=== PATIENT | female | born 1990 ===

== ENCOUNTER 2016-12-01 13:14 | Emergency (ER) | payer SELFPAY ==
[2016-12-01 15:01] VITALS: BMI 28.9
[2016-12-01 15:19] LABS: SQUAMOUS EPITHIAL 4 /hpf (0-5); URINE BACTERIA MANY (<OCC); URINE BILIRUBIN NEGATIVE (NEGATIVE); URINE BLOOD NEGATIVE (NEGATIVE); URINE CLARITY CLOUDY (Clear); URINE COLOR AMBER (YELLOW); URINE GLUCOSE (UA) NEG (Normal); URINE LEUKOCYTE ESTERASE TRACE Leu/uL (Negative); URINE NITRATE POSITIVE (NEGATIVE); URINE PROTEIN NEGATIVE (NEGATIVE); URINE UROBILINOGEN 0.2-1.0 mg/dL (0.2-1.0)
[2016-12-02] MEDS ORDERED: Lactated Ringer's 1,000 ML IV SCH (10:30)
== END 2016-12-01 16:10 | disposition home or self-care (01) ==
LOC: H.EROB2 13:14 → H.EROB 13:38 → H.EROB2 16:10
DX: O47.1 False labor at or after 37 completed weeks of gestation (principal); Z3A.37 37 weeks gestation of pregnancy

== ENCOUNTER 2016-12-21 16:48 | Inpatient (IN) | payer MEDICAID, SELFPAY ==
[2016-12-21 17:27] VITALS: BMI 30.2
[2016-12-21] MEDS ORDERED: Lactated Ringer's 1,000 ML IV SCH (17:30)
[2016-12-21 17:38] VITALS: BP 118/85; PULSE 87; RESP 18; TEMP 97.5; O2SAT 100
[2016-12-21 17:59] LABS: BASO % 0.4 % (0.0-2.0); EOS % 0.2 % (0.0-4.0); HEMOGLOBIN 11.5 g/dL (12.0-16.0); LYMPH # 1.4 K/uL (1.0-4.3); LYMPH % 14.1 % (20.0-40.0); MEAN CELL VOLUME 75.7 fl (81.0-99.0); MEAN CORPUSCULAR HEMOGLOBIN 23.7 pg (27.0-31.0); MEAN CORPUSCULAR HGB CONC 31.3 g/dL (33.0-37.0); MEAN PLATELET VOLUME 10.6 fl (7.2-11.7); MONO # 0.9 K/uL (0.0-0.8); MONO % 9.4 % (0.0-10.0); NEUT # 7.3 K/uL (1.8-7.0); NEUT % 75.9 % (50.0-75.0); RBC 4.85 Mil/uL (3.80-5.20); RED CELL DISTRIBUTION WIDTH 15.6 % (11.5-14.5); WHITE BLOOD COUNT 9.7 K/uL (4.8-10.8)
--- NOTE | 2016-12-22 00:19 | OBHP ---
Datetime: 12/21/2016 17:35 IP Adm Impression: Term, intrauterine IP Admit Plan: Admit to unit; Initiate labor induction protocol Admit Comment, IP Provider: This is a 26 y/o with 40.2 weeks GA with a MARICHUY 12/19/16 by LMP and confirmed by 8th week US, presenting for IOL. Pt presented variable decelerations while on NST this morning and sent for IOL. +FM. Pt denies N/V, CP, SOB, vaginal bleeding, CTX or loss of fluid. NKDA Meds: PNV. PMHx: denied. PSHx: lipoma extraction 4 years ago. SHx: No smoking, occasional alcohol and recreational drugs. A_P: IUP at 40.2 weeks GA will be admitted. IOL protocol will be started. Catrachito Hawkins - PGY 1. OBH Addendum: pt seen _ examined by me. Agree with above with following clarification. Pt presented to m offic e for nst and was noted to have a variable decel and late. Dr. mora advised admission for deliver y. Extremities - PN: Normal Back - PN: Normal Lungs - PN: Normal Heart - PN: Normal Thyroid - PN: Normal Neurologic - PN: Normal HEENT - PN: Normal General - PN: Normal FHR - Baseline A Provider: 150 Gestation - Est Wks by US: 40.2 IP Hx Assessment: The History has been Reviewed and is Current EGA AdmitDate IP: 40.2 Vital Signs Provider: Reviewed; Within Normal Limits IP Chief Complaint: Other NICHD Variability Prov Fetus A: Moderate 6-25bpm NICHD Accel Fetus A IP Provider: 15X15 FHR Category Provider Fetus A: Category I Dilatation, Provider: 0 Effacement, Provider: 60 Station, Provider: -3 (Annotations: Data stored by CPN on behalf of user)
--- NOTE | 2016-12-22 00:23 | OBHP ---
Datetime: 12/21/2016 18:40 Admit Comment, IP Provider: his is a 26 y/o with 40.2 weeks GA with a MARICHUY 12/19/16 by LMP and confirmed by 8th week US, presenting for IOL. Pt presented variable decelerations while on NST this m orning and sent for IOL. +FM. Pt denies N/V, CP, SOB, vaginal bleeding, CTX or loss of fluid. NKDA Meds: PNV. PMHx: denied. PSHx: lipoma extraction 4 years ago. SHx: No smoking, occasional alcohol and recreational drugs. A_P: IUP at 40.2 weeks GA will be admitted. IOL protocol will be started. Catrachito Hawkins - PGY 1. OBH Addendum: pt seen _ examined by me. Agree with above with following clarification. Pt presented to m offic e for nst and was noted to have a variable decel and late. Dr. mora advised admission for deliver y. Datetime: 12/21/2016 17:35 Pelvic Type - PN: Adequate Abdomen - PN: Normal Presentation-Admit: Vertex EGA AdmitDate IP: 40.2 Genitourinary Exam: Normal
[2016-12-22] MEDS: Lactated Ringer's 1,000 ML IV SCH ×3 (05:25→18:13)
[2016-12-22] MEDS ORDERED: ceFAZolin 1 GM in Sodium Chloride 0.9% 100 ML IVPB ONE (06:49)
[2016-12-22] MEDS ORDERED: Morphine 5 mg/10 ml preservative-free Inj(Duramorph) ONE (07:05)
--- NOTE | 2016-12-22 07:07 | OBPN ---
Datetime: 12/22/2016 07:02 IP Progress Note Comment: Cervidel removed @ 3:15 am secondary to intolerance to ctxs. Followi ng removal of cervidel ctxs decreased in intensity and have now increased to 10/10 with recurrent vanessa iable decels and late decels. Indications for primary cd d/w pt. She agreed with procedure. Informed consent obtained for primary cd and blood transfusion. Datetime: 12/21/2016 17:35 FHR - Baseline A Provider: 150 Gestation - Est Wks by US: 40.2 Presentation-Admit: Vertex Vital Signs Provider: Reviewed; Within Normal Limits NICHD Accel Fetus A IP Provider: 15X15 FHR Category Provider Fetus A: Category I NICHD Variability Prov Fetus A: Moderate 6-25bpm Dilatation, Provider: 0 Effacement, Provider: 60 Station, Provider: -3 (Annotations: Data stored by CPN on behalf of user)
[2016-12-22] MEDS ORDERED: Oxytocin 30 units/LR 500ML 30 U/500 ML BAG IV ONE ×2 (07:10→07:59)
[2016-12-22] MEDS ORDERED: DiphenhydrAMINE 50 mg/ml Inj IVP PRN (09:10)
[2016-12-22] MEDS ORDERED: Naloxone 0.4 mg/ml Inj (Adult) IVP PRN (09:10)
--- NOTE | 2016-12-22 09:21 | OBDS ---
DELIVERY PERSONNEL Delivery Doctor: Nadia Wood MD Truck Rental Manager: Kelsie Charles RN Anesthesiologist: Dr. Jasso MATERNAL INFORMATION Delivery Anesthesia: Spinal Provider Comments: preop dx: intolerance to labor; 40.3wks postop dx: same; thick mecon; direct op anesth: dr novoa spinal anesth see dictationf for complete report LABOR SUMMARY EDC: 12/19/2016 00:00 No. Babies in Womb: 1 Attempted: No LABOR INFORMATION Reason for Induction: Other Cervical Ripening Agents: Cervidil Oxytocin: N/A Group B Beta Strep: Done, Result Unknown Steroids Given: None Reason Steroids Not Administered: Not Applicable MEMBRANES Membranes Rupture Method: Artificial Rupture of Membranes: 12/22/2016 07:57 Length of Rupture (hrs): 0.02 Amniotic Fluid Color: Heavy Meconium Amniotic Fluid Amount: Moderate STAGES OF LABOR Stage 3 hrs: 0 Stage 3 min: 1 CSECTION DELIVERY Primary Indication: Other Other Primary Indication: intolerance to labor CSection Urgency: Elective CSection Incidence: Primary Labor: Labor Elective: Elective CSection Incision: Lower Uterine Transverse BABY A INFORMATION Infant Delivery Date/Time: 12/22/2016 07:58 Method of Delivery: Born in Route : No : N/A Forceps: N/A Vacuum Extraction: N/A Shoulder Dystocia : No SHOULDER DYSTOCIA BABY A Delivery Date/Time: 12/22/2016 07:58 PRESENTATION/POSITION BABY A Presentation: Cephalic Cephalic Presentation: Vertex Breech Presentation: N/A PLACENTA INFORMATION BABY A Placenta Delivery Time : 12/22/2016 07:59 Placenta Method of Delivery: Spontaneous Placenta Status: Delivered SCORES BABY A Heart Rate 1 min: >100 bpm Resp Effort 1 min: Good Cry Reflex Irritability 1 min: Cough or Sneeze or Pulls Away Muscle Tone 1 min: Active Motion Color 1 min: Body Alex, Extremities Blue Resuscitation Effort 1 min: Tactile Stimulation SCORE 1 MIN: 9 Heart Rate 5 min: >100 bpm Resp Effort 5 min: Good Cry Reflex Irritability 5 min: Cough or Sneeze or Pulls Away Muscle Tone 5 min: Active Motion Color 5 min: Body Alex, Extremities Blue Resuscitation Effort 5 min: Tactile Stimulation SCORE 5 MIN: 9 INFANT INFORMATION BABY A Gestational Age at Delivery: 40.0 Gestational Status: Term Infant Outcome : Liveborn Condition : Stable Sex: Male IDENTIFICATION/MEDS BABY A ID Band Number: [id number] ID Band Location: Left Leg; Left Arm WEIGHT/LENGTH BABY A Birthweight (gms): 3270 Weight (lb): 7 Weight (oz): 3 CORD INFORMATION BABY A No. Cord Vessels: 3 Nuchal Cord : N/A Infant Cord pH Baby Venous: n/a Cord Blood Taken: No Suction: None ASSESSMENT BABY A Infant Complications: Meconium Physical Findings at Delivery: Within Normal Limits Infant Respirations: Appears Normal Floor Worker/ALS Called : No Care By: Hina Gomez Transferred To: [facility]
[2016-12-23] MEDS: Lactated Ringer's 1,000 ML IV SCH ×2 (02:07→02:09)
[2016-12-23] MEDS: Oxycodone/Acetaminophen 5/325 mg Tab PO PRN ×3 (05:43→21:34)
[2016-12-23 08:02] LABS: BASO % 0.2 % (0.0-2.0); EOS % 0.1 % (0.0-4.0); HEMOGLOBIN 9.9 g/dL (12.0-16.0); LYMPH # 1.4 K/uL (1.0-4.3); LYMPH % 12.1 % (20.0-40.0); MEAN CELL VOLUME 75.5 fl (81.0-99.0); MEAN CORPUSCULAR HEMOGLOBIN 23.6 pg (27.0-31.0); MEAN CORPUSCULAR HGB CONC 31.3 g/dL (33.0-37.0); MEAN PLATELET VOLUME 9.9 fl (7.2-11.7); MONO # 0.7 K/uL (0.0-0.8); MONO % 6.4 % (0.0-10.0); NEUT # 9.2 K/uL (1.8-7.0); NEUT % 81.2 % (50.0-75.0); RBC 4.19 Mil/uL (3.80-5.20); RED CELL DISTRIBUTION WIDTH 15.4 % (11.5-14.5); WHITE BLOOD COUNT 11.3 K/uL (4.8-10.8)
[2016-12-24] MEDS: Oxycodone/Acetaminophen 5/325 mg Tab PO PRN ×2 (02:17→08:16)
[2016-12-24] MEDS ORDERED: Simethicone 80 mg Chewtab PO PRN (08:06)
--- NOTE | 2016-12-24 09:08 | OBPPN ---
Datetime: 12/24/2016 08:07 PP Pain Prov: Within normal limits PP Nausea Prov: Denies PP Flatus Prov: Yes PP BM Prov: No PP Breasts Prov: Normal PP Heart Prov: Normal PP Lungs Prov: Normal PP Abdomen/Uterus Prov: Normal PP Lochia Prov: Normal PP Vulva/Perineum Prov: Normal PP CVA Tenderness Prov: Normal PP Extremities Prov: Normal PP C/S Incision Prov: Normal PP Progress Prov: Normal PP Comments Phys Exam Prov: General: A_O, resting comfortably in bed, NAD HEENT: white sclera, pink conjunctiva, oral mucosa moist. Lungs: CTA B/L, no wheezing, rhonchi or rales CVS: RRR, S1, S2 NL ABD: +BS. Uterus below umbilicus Incision: clean, dry and intact. no induration, erythema or fluctuation. no dehiscence EXT: no edema, negative Kanwal's sign, calves nontender Neuro/psych: AAOX3 PP Impression Prov: Normal progression PP Plan Prov: Continue present management PP Progress Note Prov: S: patient seen on POD2 in not acute distress. Baby is breast and bottle feeding. Denies CP, palpitations, SOB, calf pain, nausea or vomiting. Patient is tolerating PO reg d iet. Lochia is less than menses. Pain controlled with percocet and motrin pRN. +flatus. No BM yet. Am bulating without difficulties. O: See above A_P: s/p C-Sect POD2 -C/w current plan -Motrin and percocet PRn for pain -Encourage ambulation and breasfeeding -Anticipated DC 12/25/16 Pablo Krishna PGY2 Vital Signs Provider PP: Reviewed; Within Normal Limits
--- NOTE | 2016-12-24 09:17 | OBPPN ---
Datetime: 12/24/2016 08:07 PP Progress Note Prov: S: patient seen on POD2 in not acute distress. Baby is breast and bottle feeding. Denies CP, palpitations, SOB, calf pain, nausea or vomiting. Patient is tolerating PO reg d iet. Lochia is less than menses. Pain controlled with percocet and motrin pRN. +flatus. No BM yet. Am bulating without difficulties. O: See above A_P: s/p C-Sect POD2 -C/w current plan -Motrin and percocet PRn for pain -Encourage ambulation and breasfeeding -Anticipated DC 12/25/16 Pablo Krishna PGY2 Addendum by Dr. Lim: Patient evaluated independently and I agree with the above. Patient is POD# 2, stable, continue current post operative orders
[2016-12-24] MEDS: Simethicone 80 mg Chewtab PO SCH ×3 (09:40→16:16)
[2016-12-25] MEDS: Oxycodone/Acetaminophen 5/325 mg Tab PO PRN ×2 (01:58→06:18)
--- NOTE | 2016-12-25 10:05 | OBPPN ---
Datetime: 12/25/2016 07:38 PP Nausea Prov: Denies PP Flatus Prov: Yes PP BM Prov: No PP Breasts Prov: Normal PP Heart Prov: Normal PP Lungs Prov: Normal PP Abdomen/Uterus Prov: Normal PP Vulva/Perineum Prov: Normal PP CVA Tenderness Prov: Normal PP Extremities Prov: Normal PP C/S Incision Prov: Normal PP Impression Prov: Normal progression PP Plan Prov: Continue present management PP Progress Note Prov: 26 y/o now seen and examined at bedside. Abmulating well w/o dizziness. Pt reports pain is controlled with pain medications. Baby is breast and bottle feeding. Pt reports p assing gas per rectum and no BM yet. Denies chest pain, dyspnea, nausea, vomiting, fever, chills or calf pain. Physical Exam: General: A_O, resting comfortably in bed, NAD HEENT: white sclera, pink conjunctiva, oral mucosa moist. Lungs: CTA B/L, no wheezing, rhonchi or rales CVS: RRR, S1, S2 NL ABD: ND, +BS; Incision: clean, dry and intact. no induration, erythema or fluctuation. intact moreno, no dehisc ence EXT: no edema, negative Kanwal's sign, calves nontender Neuro/psych: AAOX3, no grossly focal deficit, preserved affect and mood. assessement: 26 yo s/p , POD#3 asymptomatic anemia Plan: Discharge home today Percocet and Ibuprofen for pain management ferrous sulfate 325 PO bid every other day for 2 months Encourage and ambulatory Follow up in [facility] in 1 week. Sultan Mistry, PGY1 OBH ADDENDUM: pt seen _ examined. agree with above assessment and plan. -benefits of reinforced. -OBH ADDENDUM: pt seen _ examined. agree with above assessment and plan. -benefits of reinforced. Vital Signs Provider PP: Reviewed
--- NOTE | 2016-12-25 10:19 | OBDCSUM ---
Datetime: 12/25/2016 07:45 Discharged to, Provider: Home Follow up at, Provider: [facility] Disch Instr Activity: May be up to bathroom; May be up for meals; May Shower Disch Instr Diet: Regular Discharge Instructions, Provider: Routine instructions given Discharge Diagnosis, Provider: Term Delivered Follow up in weeks, Provider: 1 week Contraception discussed, Prov: Yes Disch Activity Restrictions: No exercising; No lifting; No driving; No sexual activity; Nothing in v agina - [place], tampons, douche Discharge Comment, Provider: Encourage Ibuprofen 600 mg 1 tablet every 6 hours as neded for moderate pain Percocet 5/325mg 1 tab every 6 hours as needed if severe pain Senokot S 50/8.6 one tablet daily at night. Ferrous Sulfate 325 mg twice a day but take every other day for anemia Follow up at your clinic in 1 week. Risk of addiction with Percocet d/w pt. Dontae removed. Steristrips applied Contraception after Delivery: Undecided
--- NOTE | 2016-12-31 06:05 | OP ---
PROCEDURE DATE: 12/22/2016 PREOPERATIVE DIAGNOSES: 1. 40.3 weeks' gestation. 2. Failed induction. 3. intolerance to contractions. POSTOPERATIVE DIAGNOSES: 1. 40.3 weeks' gestation. 2. Failed induction. 3. intolerance to contractions. 4. Thick meconium; right occiput, posterior presentation. SURGEON: Dr. Aiden Mitchell. MONONITROTOLUENE OPERATOR: Dr. Cooper Melvin. TIME OF SURGERY: 7:46 a.m. TYPE OF ANESTHESIA: Spinal. ANESTHESIA ADMINISTERED BY: Dr. Jasso FINDINGS: Showed viable male in the left OT presentation with thick meconium. 's of 9 and 9 and weight of 7 pounds 3 ounces. COMPLICATIONS: None. PATHOLOGY: Placenta sent to pathology. CATHETER: Trevino catheter placed to drainage. ESTIMATED BLOOD LOSS: 800 mL DESTINATION: The patient to recovery room in satisfactory condition and to special care nursery. INDICATIONS: The patient was admitted at 40.2 weeks for induction of labor. She is a 1. The patient was given Cervidil for labor induction. At 3:15 a.m., the Cervidil was removed. Following removal of the Cervidil, the contractions decreased in intensity and reassuring heart rate pattern returned. Subsequently, the contractions increased to 10/10 and recurrent variable decelerations occurred in association with late decelerations. Indications for primary section was discussed with the patient and informed consent was obtained. DESCRIPTION OF PROCEDURE: The patient was taken back to the operating room where she underwent her spinal anesthesia without complications. She was placed in dorsal supine position with leftward tilt and prepped and draped in the routine sterile fashion. A Pfannenstiel skin incision was made with the scalpel. The Bovie was used to incise down to the underlying rectus fascia. The rectus fascia was incised in the midline with the Bovie and extended bilaterally. The inferior rectus facial edge was grasped with Rema and elevated. The underlying rectus muscle was dissected off using sharp and blunt dissection. The same procedure was performed along the superior rectus facial edge. The rectus muscle was in the midline and the underlying peritoneum was identified, tented upwards and incised superiorly and inferiorly. The bladder blade was placed and a bladder flap was created using sharp and blunt dissection. The bladder blade was then reinserted to retract the bladder further down. A lower uterine transverse incision was made with the knife and the uterine cavity was entered bluntly. Thick meconium was noted. The uterine incision was extended digitally laterally and in a superior and inferior manner. The 's head was delivered followed by delivery of the remaining portion of the baby. The had spontaneous crying, so the mouth and nares were suctioned with the bulb. The cord was clamped and cut. The baby was handed off to the awaiting telephone ad taker. The placenta was delivered spontaneously and intact. The uterus was exteriorized and cleared of all clots and debris. The uterine incision was reapproximated with 0 Vicryl in a running locked fashion followed by an imbricated stitch with 0 Monocryl. The abdomen was irrigated and cleared of all clots and debris. The uterus has returned to the abdomen and the uterine incision was reinspected and good hemostasis was confirmed. The pelvic cavity was irrigated and cleared of all clots and debris. The peritoneum was reapproximated with 2-0 Vicryl in a running fashion. The rectus muscle was reapproximated with 2-0 Vicryl in a running fashion. The rectus fascia was reapproximated with 0 Vicryl in a running fashion beginning the left lateral corner and going to midline and another stitch beginning in the right lateral corner going to the midline. Each suture was respectively tied. The wound was irrigated and good hemostasis was confirmed. The subcutaneous tissue was reapproximated with 2-0 simple interrupted. The skin was reapproximated with 3-0 moreno. Of note, Dr. Melvin was my medical record assistant. He assisted in surgical entry, surgical hemostasis, surgical exposure, delivery of the baby and surgical closure. His assistance was essential to the performance of the procedure. All sponge, lap and needle counts were correct. The patient returned to recovery room in satisfactory condition. Aiden Mitchell MD FABIANO
== END 2016-12-25 13:10 | disposition home or self-care (01) | DRG 370 ==
LOC: H.EROB2 16:48 → H.L&D 17:27 → H.OB/GYN 12-22 11:47
PROVIDERS: ADMIT Obstetrics & Gynecology; ATTEND Obstetrics & Gynecology
PROC: 4A1HXCZ Monitoring of Products of Conception, Cardiac Rate, External Approach (ICD-10-PCS; 2016-12-21)
PROC: 10D00Z1 Extraction of Products of Conception, Low, Open Approach (ICD-10-PCS; principal; 2016-12-22)
DX: O76 Abnormality in fetal heart rate and rhythm complicating labor and delivery (principal); O90.81 Anemia of the puerperium; O77.0 Labor and delivery complicated by meconium in amniotic fluid; O48.0 Post-term pregnancy; Z3A.40 40 weeks gestation of pregnancy; Z37.0 Single live birth